=== PATIENT | female | born 1980 ===

== ENCOUNTER 2025-05-17 06:00 | Day surgery (SDC) | payer OTHER ==
[2025-05-10 11:37] VITALS: BP 111/77
[~2025-05-17] VITALS: Ht 167.6 cm; Wt 70.3 kg
[~2025-05-17 06:00] MED LIST: FOLIC ACID0.8 M1; HUMIRA40 MG/0.2; MELOXICAM7.5 MG; PLAQUENIL; [UNRECOGNIZED DRUG - OTHER]
[2025-05-17] MEDS ORDERED: ENOXAPARIN SODIUM 40 MG/0.4 ML SYRINGE SUBCUTANEO ONE (06:32)
[2025-05-17] MEDS ORDERED: METRONIDAZOLE/SODIUM CHLORIDE 500 MG/100 ML PIGGYBACK IV ONE (06:33)
[2025-05-17] MEDS ORDERED: CEFTRIAXONE SODIUM 2,000 MG VIAL ONE (06:33)
[2025-05-17] MEDS ORDERED: BUPIVACAINE HCL/MPF 0.5% 30ML VIAL ONE (07:04)
[2025-05-17] MEDS ORDERED: PERCOCET 5-3251 EACH PO (10:46)
== END 2025-05-17 12:15 | disposition home or self-care (01) ==
LOC: CIR.AMB 06:00
PROVIDERS: ATTEND Surgery
DX: D17.79 Benign lipomatous neoplasm of other sites (principal); Z88.8 Allergy status to other drugs, medicaments and biological substances